=== PATIENT | male | born 1935 | race Caucasian/White ===

== ENCOUNTER 2019-02-12 20:08 | Emergency (ER) | payer MEDICARE, BC ==
[2019-02-12 20:57] VITALS: BP 136/57
[2019-02-12] MEDS ORDERED: Cephalexin CAP* 500 MG PO ONE (21:13)
--- NOTE | 2019-02-12 21:13 | UC ---
Skin Complaint HPI - HPI Summary HPI Summary: Had a little spot on the face 02/10/19 and squeezed it and got some pus out. Starting yesterday now redness spreading out with increased swelling and tenderness. - History of Current Complaint Chief Complaint: UCSkin Time Seen by Provider: 02/12/19 20:56 Stated Complaint: SKIN ISSUE FACE Hx Obtained From: Patient Onset/Duration: Sudden Onset, Lasting Days - 3, Worse Since - yesterday Skin Exposure Onset/Duration: Days Ago - 3 Onset Severity: Mild Current Severity: Mild Pain Intensity: 0 Location: Face Character: Redness, Raised, Painful Aggravating Factor(s): Touch Alleviating Factor(s): Nothing Associated Signs & Symptoms: Positive: Drainage - initially, none since, Tenderness. Negative: Fever, Chills - Allergy/Home Medications Allergies/Adverse Reactions: Allergies Allergy/AdvReac Type Severity Reaction Status Date / Time Quinine [Quinine] Allergy Sunburn Verified 02/12/19 20:56 PMH/Surg Hx/FS Hx/Imm Hx Endocrine History: Diabetes, Hypothyroidism, Dyslipidemia Cardiovascular History: Hypertension, Atrial Fibrillation Other Respiratory History: sleep apnea GI/ History: Gastroesophageal Reflux - Surgical History Surgical History: Yes Surgery Procedure, Year, and Place: T&A, Rectal Abscess, Right CHRISTOPHER, Appendectomy , THyroidectomy, Bilateral TKA, Left Shoulder Replacement, TURP, Laminectomy - Family History Known Family History: Positive: Diabetes - Social History Occupation: Retired Lives: With Family Alcohol Use: None Substance Use Type: None Smoking Status (MU): Never Smoked Tobacco Review of Systems All Other Systems Reviewed And Are Negative: Yes Skin: Positive: Other - redness and swelling left lower face lateral to the mouth Is Patient Immunocompromised?: Yes Physical Exam Triage Information Reviewed: Yes Appearance: Well-Appearing, No Pain Distress, Well-Nourished Vital Signs: Initial Vital Signs Temp 97.5 F 02/12/19 20:52 Pulse 59 02/12/19 20:52 Resp 18 02/12/19 20:52 BP 136/57 02/12/19 20:52 Pulse Ox 98 02/12/19 20:52 Vital Signs Reviewed: Yes Eyes: Positive: Conjunctiva Clear Neck exam: Normal Respiratory Exam: Normal Cardiovascular: Positive: RRR, No Murmur Musculoskeletal Exam: Normal Neurological Exam: Normal Psychological Exam: Normal Skin: Positive: Other - 2.5x2.0 cm erythema around small swelling with crusted punctum left lower face. Images Head: 1 - 2.5x2.0 cm erythema Course/Dx - Differential Diagnoses - Skin Complaint Differential Diagnoses: Abscess, Cellulitis, Eczema, Impetigo - Diagnoses Provider Diagnosis: Cellulitis, face Discharge - Sign-Out/Discharge Documenting (check all that apply): Patient Departure All imaging exams completed and their final reports reviewed: No Studies - Discharge Plan Condition: Stable Disposition: HOME Prescriptions: Cephalexin CAP* [Keflex 500 CAP*] 500 mg PO BID #[id number] Patient Education Materials: Cellulitis (ED), Cephalexin (By mouth) Referrals: Josh Colindres MD [Primary Care Provider] - - Billing Disposition and Condition Condition: STABLE Disposition: Home
== END 2019-02-12 21:30 | disposition home or self-care (01) ==
LOC: UCCORT 20:08
DX: L03.211 Cellulitis of face (principal); E11.9 Type 2 diabetes mellitus without complications; E03.9 Hypothyroidism, unspecified; E78.5 Hyperlipidemia, unspecified; I10 Essential (primary) hypertension; I48.91 Unspecified atrial fibrillation; G47.30 Sleep apnea, unspecified; K21.9 Gastro-esophageal reflux disease without esophagitis; Z96.612 Presence of left artificial shoulder joint; Z88.8 Allergy status to other drugs, medicaments and biological substances
CPT/HCPCS: 99202; A9270-GY; G0463